=== PATIENT | female | born 1970 | race Caucasian/White ===

== ENCOUNTER 2016-12-20 13:47 | Emergency (ER) | payer MEDICAID | END 2016-12-20 16:43 | disposition home or self-care (01) | LOC: D.ER 13:47 | DX: F33.9 Major depressive disorder, recurrent, unspecified (principal); F17.200 Nicotine dependence, unspecified, uncomplicated ==

== ENCOUNTER → 2019-06-24 08:53 | Outpatient (CLI) | payer MEDICAID | END | disposition home or self-care (01) | LOC: D.CT 08:53 | PROVIDERS: ATTEND Nurse Practitioner Family | DX: J93.9 Pneumothorax, unspecified (principal) ==